=== PATIENT | male | born 1965 ===

== ENCOUNTER 2016-12-25 05:31 | Inpatient (IN) ==
[~2016-12-25 05:31] MED LIST: LORazepam 1 MG TABLET PO ONE
[2016-12-25] MEDS ORDERED: VANCOMYCIN INJ 1,000 MG in SODIUM CHLORIDE 0.9% 250 ML IV ONE (06:00)
[2016-12-25] MEDS ORDERED: LORazepam 1 MG TABLET PO ONE (06:00)
[2016-12-25] MEDS ORDERED: FAMOTIDINE 20 MG TABLET PO ONE (06:00)
[2016-12-25] MEDS ORDERED: SODIUM CHLORIDE 0.9% 100 ML IV ONE (06:04)
[2016-12-25] MEDS ORDERED: ceFAZolin 1,000 MG VIAL ONE (06:04)
[2016-12-25] MEDS ORDERED: VANCOMYCIN 1,000 MG VIAL ONE (06:04)
[2016-12-25] MEDS: LACTATED RINGERS 1,000 ML IV SCH ×2 (06:25→18:06)
[2016-12-25] MEDS ORDERED: TRANEXAMIC ACID 1,000 MG/10 ML VIAL IV ONE (06:43)
--- NOTE | 2016-12-25 07:04 | History and Physical Update ---
History and Physical Update - History and Physical H&P was reviewed, the patient examined and there: are no changes in the patients condition since last H&P was completed.
[2016-12-25] MEDS ORDERED: TEMAZEPAM 7.5 MG CAPSULE PO PRN (07:07)
[2016-12-25] MEDS ORDERED: HYDROmorphone 2 MG/1 ML VIAL IV PRN (07:07)
[2016-12-25] MEDS ORDERED: PROMETHAZINE 25 MG/1 ML VIAL IM PRN (07:07)
[2016-12-25] MEDS ORDERED: BISACODYL 10 MG SUPP RECTAL PRN (07:07)
[2016-12-25] MEDS ORDERED: LACTULOSE 20 GM/30 ML UDCUP PO PRN (07:07)
[2016-12-25] MEDS ORDERED: MAGNESIUM HYDROXIDE SUSP 30 ML UDCUP PO PRN (07:07)
[2016-12-25] MEDS ORDERED: ROPIVACAINE 0.5% 30 ML VIAL ONE (07:24)
[2016-12-25] MEDS ORDERED: KETAMINE 500 MG/10 ML VIAL ONE (09:02)
[2016-12-25] MEDS ORDERED: SODIUM CHLORIDE 0.9% 200 ML IV ONE (09:03)
[2016-12-25] MEDS ORDERED: MIDAZOLAM 2 MG/2 ML VIAL ONE (09:03)
[2016-12-25] MEDS ORDERED: LACTATED RINGERS 1,000 ML IV ONE (09:03)
[2016-12-25] MEDS ORDERED: fentaNYL 100 MCG/2 ML VIAL ONE (09:03)
[2016-12-25] MEDS ORDERED: PROPOFOL 200 MG/20 ML VIAL IV ONE (09:03)
[2016-12-25] MEDS ORDERED: ACETAMINOPHEN 1,000 MG/100 ML VIAL IV ONE (09:04)
--- NOTE | 2016-12-25 09:29 | XRay Report ---
History: Joint replacement Date: 12/25/2016 Study: Left knee 2 views Comparison exam: No previous The patient is immediately postop left knee replacement. The knee prosthesis is well conjugated. There is no radiographic evidence to suggest complication. Skin jasmyn and surgical drains overlie the soft tissues anteriorly. Impression: Satisfactory postoperative appearance of the left knee prosthesis PROCEDURE INTERPRETED AT [facility] DEPARTMENT OF RADIOLOGY Final Report Signed by: Dr. Zoe Phelps
[2016-12-25] MEDS ORDERED: HYDROmorphone PCA 30 MG/30 ML SYRINGE IV ONE (09:42)
[2016-12-25] MEDS: HYDROmorphone PCA 30 MG/30 ML SYRINGE IV SCH (09:48)
--- NOTE | 2016-12-25 10:03 | Anesthesia ---
Anesthesia Post OP - Post Ansesthetic Evaluation Patient seen in post op: Yes Resp: within normal limits CV: within normal limits Mental: within normal limits Temp: within normal limits Nugs-Gk-Vplhqhlyf: within normal limits Nausea and Vomiting: within normal limits Pain: within normal limits
[2016-12-25] MEDS: ceFAZolin 2,000 MG in PREMIX 1 EACH IV SCH ×2 (10:45→18:08)
[2016-12-25] MEDS: LEVOTHYROXINE 112 MCG TABLET PO SCH (11:00)
[2016-12-25] MEDS: TAMSULOSIN 0.4 MG CAPSULE PO SCH (11:01)
[2016-12-25] MEDS: SPIRONOLACTONE 25 MG TABLET PO SCH (11:02)
[2016-12-25] MEDS: DOCUSATE SODIUM 100 MG CAPSULE PO SCH ×2 (11:02→20:03)
[2016-12-25] MEDS: ASPIRIN EC 81 MG TABLET PO SCH (11:03)
[2016-12-25] MEDS: MELOXICAM 7.5 MG TABLET PO SCH (11:03)
[2016-12-25] MEDS: amLODIPine 5 MG TABLET PO SCH (11:14)
[2016-12-25] MEDS: ONDANSETRON 4 MG/2 ML VIAL IV PRN (11:14)
[2016-12-25] MEDS: CARVEDILOL 6.25 MG TABLET PO SCH ×2 (11:14→20:05)
--- NOTE | 2016-12-25 15:38 | Operative Note ---
DATE: 12/25/2016 PREOPERATIVE DIAGNOSIS: OSTEOARTHRITIS LEFT KNEE. POSTOPERATIVE DIAGNOSIS: OSTEOARTHRITIS LEFT KNEE. OPERATIVE PROCEDURE: Left total knee ([place]). SURGEON: Matti Woods Jr., MD ANESTHESIA: Spinal INDICATIONS: A 51-year-old male with severe osteoarthritis to his left knee. He h as maximized conservative treatment through the years including multiple injections, anti-inflammato ry medications, and even bracing. He presents today for elective left total knee. PROCEDURE: The patient taken to the operating room and under spinal anesthetic placed in the supin e position. The left lower extremity positioned, prepped and draped in the usual sterile manner. T he limb was elevated and exsanguinated and the tourniquet inflated to 300 mmHg. A previous incision over the anterior knee was re-incised. This was from a previous quad tendon repair. A median para patellar arthrotomy performed with the knee revealing severe and extensive tricompartmental degenera tive changes. Intramedullary alignment guides were used to make the appropriate cuts about the dist al femur proximal tibia. The femur sized to an 8 and the tibia to a 7. A 6 mm fixed bearing space selected and the PCL retained. The patella resurfaced with a 41 button. A lateral release was requ ired. After removal of the trial components all 3 components were cemented into place. After this hardene d, the knee was irrigated and closed in a standard fashion over two 1/8th-inch Hemovac drains using #1 Vicryl for the arthrotomy, 2-0 Vicryl for the subcutaneous layer, and jasmyn for skin. The tour niquet was deflated at wound closure at 51 minutes.
--- NOTE | 2016-12-25 16:20 | Pulmonology Progress Note ---
Pulmonary - PN: Subj Interval history: Patient is a 51 year came in today and had a left total knee replacement. He is a large amount of sleep apnea but did well with surgery. He says he is not having any trouble breathing. He is using his CPAP and does well. Overall he says he is feeling okay. Exam (Progress Note) - Constitutional Vitals: Period Temp Pulse Resp BP Sys/Munoz Pulse Ox Last 24 Hr 97.0 F-98.1 F 52-70 12-20 125-176/57-100 95-100 General appearance: no acute distress, over weight - Head Head exam: Present: normal inspection, normocephalic - Eye Eye exam: Present: EOMI. Absent: scleral icterus Pupils: Present: ROCHELLE - ENT ENT exam: Present: normal exam, other (He has a class IV Mallampati exam) - Neck Neck exam: Present: normal inspection. Absent: lymphadenopathy, thyromegaly - Respiratory Respiratory exam: Present: clear to auscultation bilaterally. Absent: wheezes - Cardiovascular Cardiovascular exam: Present: regular rate and rhythm. Absent: gallop, systolic murmur - GI/Abdominal GI/Abdominal exam: Present: normal bowel sounds, soft. Absent: organomegaly, tenderness - Extremities Exam Extremities exam: Present: other (Left leg is splinted). Absent: calf tenderness - Neurological Exam Neurological exam: Present: alert, oriented X3, CN II-XII intact - Psychiatric Psychiatric exam: Present: normal affect - Skin Skin exam: Present: warm Assessment and Plan (1) Osteoarthritis Status: Acute Assessment and plan: Patient has significant arthritis of his knees and comes in for knee replacement Current Visit: Yes (2) Status post total left knee replacement Status: Acute Assessment and plan: Patient did well with surgery today and is stable postop. Current Visit: Yes (3) Hypertension Status: Acute Assessment and plan: His blood pressure and heart rate are stable Current Visit: No (4) Sleep apnea Status: Acute Assessment and plan: He will continue to use his CPAP postop. Current Visit: No
--- NOTE | 2016-12-25 17:54 | Orthopedic Progress Note ---
Orthopedics - Subjective Interval history: comfortable, good pulse, discussed, up in am Exam - Constitutional Vitals: Period Temp Pulse Resp BP Sys/Munoz Pulse Ox Last 24 Hr 97.0 F-98.2 F 52-70 12-20 125-176/57-100 94-100
[2016-12-25] MEDS: FONDAPARINUX 2.5 MG/0.5 ML SYRINGE SUBCUT SCH (18:05)
[2016-12-26] MEDS: LACTATED RINGERS 1,000 ML IV SCH (03:46)
[2016-12-26 06:06] LABS: Basophils % 0.2 % (0.0-0.8); Eosinophils # 0.1 10*3/uL (0.0-0.87); Eosinophils % 0.9 % (0.00-10.9); Hematocrit 37.9 VOL% (42.0-52.0); Hemoglobin 12.9 GM/DL (14.0-18.0); Immature Granulocytes % 0.5 %; Immature Granulocytes Absolute 0.05 #; Lymphocytes % 9.4 % (21.2-54.2); Mean Corpuscular Hemoglobin 30 PG (27-34); Mean Corpuscular Volume 89.4 FL (87-102); Mean Platelet Volume 10.8 FL (9.6-12.0); Monocytes # 1.3 10*3/uL (0.11-0.8); Monocytes % 11.8 % (1.7-12.7); Neutrophils # 8.4 10*3/uL (1.4-7.4); Neutrophils % 77.2 % (38.7-73.9); Platelet Count 255 T/CUMM (130-400); Red Blood Count 4.24 MC/CUMM (3.8-5.5); Red Cell Distribution Width 12.1 % (9.3-17.3); White Blood Count 10.9 T/CUMM (4-12)
[2016-12-26 06:41] LABS: Calcium 8.1 MG/DL (8.5-10.1); Osmolality,Calculated 278.7 MOS/KG (273-304); Potassium 3.7 MMOL/L (3.5-5.1)
--- NOTE | 2016-12-26 07:24 | Orthopedic Progress Note ---
Orthopedics - Subjective Interval history: Hemoglobin over 12 drain removed nVI ready to start PT Exam - Constitutional Vitals: Period Temp Pulse Resp BP Sys/Munoz Pulse Ox Last 24 Hr 97.0 F-99.3 F 52-70 12-20 125-153/57-96 94-100 Results - Labs CBC & BMP: 12/26/16 05:17 12/26/16 05:17
[2016-12-26] MEDS: HYDROmorphone PCA 30 MG/30 ML SYRINGE IV SCH (08:00)
[2016-12-26] MEDS: LEVOTHYROXINE 112 MCG TABLET PO SCH (08:24)
[2016-12-26] MEDS: amLODIPine 5 MG TABLET PO SCH (08:24)
[2016-12-26] MEDS: TAMSULOSIN 0.4 MG CAPSULE PO SCH (08:24)
[2016-12-26] MEDS: ASPIRIN EC 81 MG TABLET PO SCH (08:25)
[2016-12-26] MEDS: SPIRONOLACTONE 25 MG TABLET PO SCH (08:25)
[2016-12-26] MEDS: DOCUSATE SODIUM 100 MG CAPSULE PO SCH ×2 (08:26→21:10)
[2016-12-26] MEDS: CARVEDILOL 6.25 MG TABLET PO SCH ×2 (08:26→21:10)
[2016-12-26] MEDS: MELOXICAM 7.5 MG TABLET PO SCH (08:26)
--- NOTE | 2016-12-26 09:08 | Pulmonology Progress Note ---
Pulmonary - PN: Subj Interval history: Patient is a 51 year came in today and had a left total knee replacement. He is a large man with sleep apnea but did well with surgery. He says he is very sore but had a fairly good night. He does use his CPAP at night. He is not having any shortness of breath or chest pain. He is going to start physical therapy today Exam (Progress Note) - Constitutional Vitals: Period Temp Pulse Resp BP Sys/Munoz Pulse Ox Last 24 Hr 97.0 F-99.3 F 54-70 12-20 125-153/62-96 94-100 Exam: General appearance: no acute distress, over weight, he is alert and fairly comfortable lying in bed. - Head Head exam: Present: normal inspection, normocephalic - Eye Eye exam: Present: EOMI. Absent: scleral icterus Pupils: Present: ROCHELLE - ENT ENT exam: Present: normal exam, other (He has a class IV Mallampati exam) - Neck Neck exam: Present: normal inspection. Absent: lymphadenopathy, thyromegaly - Respiratory Respiratory exam: Present: clear to auscultation bilaterally. He has good breath sounds bilaterally. Absent: wheezes - Cardiovascular Cardiovascular exam: Present: regular rate and rhythm. Absent: gallop, systolic murmur - GI/Abdominal GI/Abdominal exam: Present: normal bowel sounds, soft. Absent: organomegaly, tenderness - Extremities Exam Extremities exam: Present: other (Left leg is splinted). Absent: calf tenderness - Neurological Exam Neurological exam: Present: alert, oriented X3, CN II-XII intact - Psychiatric Psychiatric exam: Present: normal affect - Skin Skin exam: Present: warm Results - Labs CBC & BMP: 12/26/16 05:17 12/26/16 05:17 Assessment and Plan (1) Osteoarthritis Status: Acute Assessment and plan: Patient has significant arthritis of his knees and comes in for knee replacement. He is doing well postop. Current Visit: Yes (2) Status post total left knee replacement Status: Acute Assessment and plan: Patient did well with surgery today and is stable postop. He will start physical therapy today. His lab work looks okay. Current Visit: Yes (3) Hypertension Status: Acute Assessment and plan: His blood pressure and heart rate are stable. He is hemodynamically stable. Current Visit: No (4) Sleep apnea Status: Acute Assessment and plan: He will continue to use his CPAP postop. He does not feel like he is having any trouble breathing. Current Visit: No
--- NOTE | 2016-12-26 10:12 | Pathology Report from [facility] ---
ACCESSION # : [id number] PATIENT NAME : Enriqueta Morales ORDERING DR : ENRIQUETA RATLIFF JR, MD CLINICAL HX: LT knee osteoarthritis POST-OP DX: Same SPECIMEN INFO: LT knee bone & tissue GROSS DESCRIPTION: Received in formalin labeled "ENRIQUETA MORALES" are fragments of bone, cartilage and adipose tissue measuring collectively 15.6 x 18.6 cm. The articular surfaces are focally degenerative with osteophyte formation and cartilaginous lipping present. Paint Stock Clerk sections are submitted in one cassette following decalcification. DIAGNOSIS FOR ENRIQUETA MORALES: LEFT KNEE BONE AND TISSUE: Gross and microscopic findings consistent with osteoarthritis. SERVICE DATE: 12/25/2016 REPORT DATE: 12/26/2016 PATHOLOGIST: Ngozi New III, M.D. MTDD
[2016-12-26] MEDS: diphenhydrAMINE CAP 25 MG CAPSULE PO PRN ×2 (11:19→23:59)
[2016-12-26] MEDS: ONDANSETRON 4 MG/2 ML VIAL IV PRN (12:19)
[2016-12-26] MEDS: HydrOXYzine PAMOATE 25 MG CAPSULE PO PRN (16:23)
[2016-12-26] MEDS: FONDAPARINUX 2.5 MG/0.5 ML SYRINGE SUBCUT SCH (18:26)
[2016-12-27] MEDS: HydrOXYzine PAMOATE 25 MG CAPSULE PO PRN (02:27)
[2016-12-27 04:55] LABS: Basophils % 0.2 % (0.0-0.8); Eosinophils # 0.3 10*3/uL (0.0-0.87); Eosinophils % 2.7 % (0.00-10.9); Hematocrit 33.8 VOL% (42.0-52.0); Hemoglobin 11.7 GM/DL (14.0-18.0); Immature Granulocytes % 0.9 %; Immature Granulocytes Absolute 0.11 #; Lymphocytes # 1.1 10*3/uL (1.4-4.0); Lymphocytes % 9.1 % (21.2-54.2); Mean Corpuscular HGB Conc 34.6 GM/DL (32-36); Mean Corpuscular Hemoglobin 30 PG (27-34); Mean Corpuscular Volume 87.8 FL (87-102); Mean Platelet Volume 10.3 FL (9.6-12.0); Monocytes # 1.6 10*3/uL (0.11-0.8); Monocytes % 13.4 % (1.7-12.7); Neutrophils # 8.6 10*3/uL (1.4-7.4); Neutrophils % 73.7 % (38.7-73.9); Platelet Count 212 T/CUMM (130-400); Red Blood Count 3.85 MC/CUMM (3.8-5.5); White Blood Count 11.7 T/CUMM (4-12)
--- NOTE | 2016-12-27 07:08 | Orthopedic Progress Note ---
Orthopedics - Subjective Interval history: Comfortable tolerating PT well instructed likely home either Saturday afternoon or Saturday discussed. Exam - Constitutional Vitals: Period Temp Pulse Resp BP Sys/Munoz Pulse Ox Last 24 Hr 98.0 F-99.9 F 61-77 18-20 129-171/70-88 95-97 Results - Labs CBC & BMP: 12/27/16 04:43 12/26/16 05:17 Specialty Discharge - Follow Up or Referrals Follow up with: Matti Woods Jr., MD [Physician] -
--- NOTE | 2016-12-27 07:10 | Discharge Summary ---
Hospital Course - Hospital Course Hospital Course: Elective total knee left discharged home with home health Diagnosis - Discharge Diagnosis (1) Osteoarthritis of left knee Status: Acute Specialty Discharge - Follow Up or Referrals Follow up with: Matti Woods Jr., MD [Physician] - Discharge Plan - Discharge Data Disposition: Home Health Service Condition at Discharge: Stable Discharge Diet: advance to your usual diet Activity: ambulate only with your walker, as per physical therapy, increase activity as tolerated Hygiene: may shower, keep area(s) dry Weight Bearing at Discharge: weight bear as tolerated - Discharge Medications New HYDROcodone/ACETAMIN 7.5-325 [[place] 7.5-325] 2 tablet PO Q4H PRN #30 tablet PRN Reason: Moderate Pain unrelieved by 1 Continue Tamsulosin [Flomax] 0.4 mg PO DAILY Aspirin [Ecotrin] 81 mg PO DAILY amLODIPine [Norvasc] 10 mg PO DAILY Spironolactone 12.5 mg PO DAILY Meloxicam 7.5 mg PO DAILY Levothyroxine Tab [Synthroid Tab] 150 mcg PO DAILY@0700 Carvedilol 3.125 mg PO BID - Follow Up or Referral Follow Up: Matti Woods Jr., MD [Physician] - - Forms/Instructions Instructions: Total Knee Replacement (DC) Additional Discharge Instructions: Discharged home with home health continue home meds aspirin daily [place] for pain total knee protocol with CPM walker advancing with activity weightbearing as tolerated jasmyn to be removed and Steri-Strip January 08. Follow-up 4 weeks Exam - Constitutional Vitals: Period Temp Pulse Resp BP Sys/Munoz Pulse Ox Last 24 Hr 98.0 F-99.9 F 61-77 18-20 129-171/70-88 95-97 Discharge Results Labs on day of discharge: Labs from last 24 hours 12/27/16 04:43 WBC 11.7 RBC 3.85 Hgb 11.7 L Hct 33.8 L MCV 87.8 MCH 30 MCHC 34.6 RDW 12.0 Plt Count 212 MPV 10.3 Neut % (Auto) 73.7 Lymph % (Auto) 9.1 L [place] % (Auto) 13.4 H Eos % (Auto) 2.7 Baso % (Auto) 0.2 Neut # (Auto) 8.6 H Lymph # (Auto) 1.1 L [place] # (Auto) 1.6 H Eos # (Auto) 0.3 Baso # (Auto) 0.0 Immature Gran % 0.9 Nucleated RBC % 0.0 Immature Gran # 0.11 Nucleated RBCs # 0.00 DS: Provider Date of admission: 12/25/16 05:31 Primary care physician: Candido Dalal MD Attending physician on admission: Matti Woods Jr., MD Consults: 12/25/16 07:07 Consult to Case Mgmt/Social Srvs [CONS] Routine Reason for Case Mgmt/Social Srvs: Rehab Home Health Equipment Consult Comment: Bedside Commode & CPM deliver room 319; Pt 5ft 11in 302lbs; before D/C Consult to Occupational Therapy [CONS] Routine Reason for Occupational Therapy: Evaluate and Treat Consult Comment: ADL's Consult to Physical Therapy [CONS] Routine Reason for Physical Therapy: Evaluate and Treat Gait Training 12/25/16 07:09 Consult to Physician [CONS] Routine Comment: Consulting Provider: Esdras Latham Consulting Provider Notified: Yes When should Consulting Provider be notified: Now Person Notified: kate huang Date Notified: 12/25/16 Time Notified: 10:25 12/25/16 09:25 Consult to Pharmacy [CONS] Routine Reason for Pharmacy Consult: Adjust Meds Renal Funct 12/26/16 10:49 Consult to Physical Therapy [CONS] Routine Reason for Physical Therapy: Other Consult Comment: Ordering Standard Walker deliver to room before Pt D/C home. Discharging clinician: Matti Woods Jr., MD
[2016-12-27] MEDS: LACTATED RINGERS 1,000 ML IV SCH (07:43)
[2016-12-27] MEDS: ASPIRIN EC 81 MG TABLET PO SCH (08:47)
[2016-12-27] MEDS: SPIRONOLACTONE 25 MG TABLET PO SCH (08:47)
[2016-12-27] MEDS: TAMSULOSIN 0.4 MG CAPSULE PO SCH (08:47)
[2016-12-27] MEDS: amLODIPine 5 MG TABLET PO SCH (08:47)
[2016-12-27] MEDS: LEVOTHYROXINE 112 MCG TABLET PO SCH (08:47)
[2016-12-27] MEDS: CARVEDILOL 6.25 MG TABLET PO SCH ×2 (08:47→21:39)
[2016-12-27] MEDS: DOCUSATE SODIUM 100 MG CAPSULE PO SCH ×2 (08:47→21:40)
[2016-12-27] MEDS: MELOXICAM 7.5 MG TABLET PO SCH (08:47)
--- NOTE | 2016-12-27 10:36 | Pulmonology Progress Note ---
Pulmonary - PN: Subj Interval history: Patient is a 51 year came in today and had a left total knee replacement. He is a large man with sleep apnea but did well with surgery. He started physical therapy yesterday and is doing fairly well. He feels like his leg soreness is getting better. He is not having any trouble with his breathing. He has not had a bowel movement yet Exam (Progress Note) - Constitutional Vitals: Period Temp Pulse Resp BP Sys/Munoz Pulse Ox Last 24 Hr 98.0 F-99.9 F 64-77 18-20 132-171/74-94 95-97 Exam: General appearance: no acute distress, over weight, he is alert and fairly comfortable lying in bed. He is moving around a little better - Head Head exam: Present: normal inspection, normocephalic - Eye Eye exam: Present: EOMI. Absent: scleral icterus Pupils: Present: ROCHELLE - ENT ENT exam: Present: normal exam, other (He has a class IV Mallampati exam) - Neck Neck exam: Present: normal inspection. Absent: lymphadenopathy, thyromegaly - Respiratory Respiratory exam: Present: clear to auscultation bilaterally. He has good breath sounds bilaterally. Absent: wheezes - Cardiovascular Cardiovascular exam: Present: regular rate and rhythm. Absent: gallop, systolic murmur - GI/Abdominal GI/Abdominal exam: Present: normal bowel sounds, soft. Absent: organomegaly, tenderness - Extremities Exam Extremities exam: Present: other (Left leg is splinted). Absent: calf tenderness - Neurological Exam Neurological exam: Present: alert, oriented X3, CN II-XII intact - Psychiatric Psychiatric exam: Present: normal affect - Skin Skin exam: Present: warm Results - Labs CBC & BMP: 12/27/16 04:43 12/26/16 05:17 Assessment and Plan (1) Osteoarthritis Status: Acute Assessment and plan: Patient has significant arthritis of his knees and comes in for knee replacement. He is doing well postop. He will continue with physical therapy. Current Visit: Yes (2) Status post total left knee replacement Status: Acute Assessment and plan: Patient did well with surgery and will continue with physical therapy. He says his leg is feeling better today. Current Visit: Yes (3) Hypertension Status: Acute Assessment and plan: His blood pressure and heart rate are stable. He is hemodynamically stable. Current Visit: No (4) Sleep apnea Status: Acute Assessment and plan: He will continue to use his CPAP postop. He does not feel like he is having any trouble breathing. Overall he has been quite stable. Current Visit: No Specialty Discharge - Follow Up or Referrals Follow up with: Matti Woods Jr., MD [Physician] - 01/24/17 9:00 am
[2016-12-27] MEDS: FONDAPARINUX 2.5 MG/0.5 ML SYRINGE SUBCUT SCH (17:32)
[2016-12-28] MEDS: LEVOTHYROXINE 112 MCG TABLET PO SCH (09:30)
[2016-12-28] MEDS: amLODIPine 5 MG TABLET PO SCH (09:30)
[2016-12-28] MEDS: ASPIRIN EC 81 MG TABLET PO SCH (09:31)
[2016-12-28] MEDS: SPIRONOLACTONE 25 MG TABLET PO SCH (09:31)
[2016-12-28] MEDS: DOCUSATE SODIUM 100 MG CAPSULE PO SCH (09:31)
[2016-12-28] MEDS: MELOXICAM 7.5 MG TABLET PO SCH (09:31)
[2016-12-28] MEDS: TAMSULOSIN 0.4 MG CAPSULE PO SCH (09:31)
[2016-12-28] MEDS: CARVEDILOL 6.25 MG TABLET PO SCH (09:31)
--- NOTE | 2016-12-28 09:47 | Orthopedic Progress Note ---
Orthopedics - Subjective Interval history: comfortable. walking in [place]. [place] ok. dressing dry. mobilize with therapy. discharge post therapy. Exam - Constitutional Vitals: Period Temp Pulse Resp BP Sys/Munoz Pulse Ox Last 24 Hr 98.5 F-99.6 F 70-78 16-19 126-154/61-89 94-97 Results - Labs CBC & BMP: 12/27/16 04:43 12/26/16 05:17 Specialty Discharge - Follow Up or Referrals Follow up with: Matti Woods Jr., MD [Physician] - 01/24/17 9:00 am
--- NOTE | 2016-12-28 10:20 | Pulmonology Progress Note ---
Pulmonary - PN: Subj Interval history: Patient is a 51 year came in and had a left total knee replacement. He is a large man with sleep apnea but did well with surgery. He started physical therapy yesterday and is doing fairly well. He feels like his leg soreness is getting better. He is not having any trouble with his breathing. He says his leg is feeling better and is doing more activity. He does want to go home today. Exam (Progress Note) - Constitutional Vitals: Period Temp Pulse Resp BP Sys/Munoz Pulse Ox Last 24 Hr 98.5 F-99.6 F 70-78 16-19 126-154/61-89 94-97 Exam: General appearance: no acute distress, over weight, he is alert and fairly comfortable lying in bed. He is moving around a little better - Head Head exam: Present: normal inspection, normocephalic - Eye Eye exam: Present: EOMI. Absent: scleral icterus Pupils: Present: ROCHELLE - ENT ENT exam: Present: normal exam, other (He has a class IV Mallampati exam) - Neck Neck exam: Present: normal inspection. Absent: lymphadenopathy, thyromegaly - Respiratory Respiratory exam: Present: clear to auscultation bilaterally. He has good breath sounds bilaterally. Absent: wheezes - Cardiovascular Cardiovascular exam: Present: regular rate and rhythm. Absent: gallop, systolic murmur - GI/Abdominal GI/Abdominal exam: Present: normal bowel sounds, soft. Absent: organomegaly, tenderness - Extremities Exam Extremities exam: Present: Left knee swelling is better and is moving his leg better. - Neurological Exam Neurological exam: Present: alert, oriented X3, CN II-XII intact - Psychiatric Psychiatric exam: Present: normal affect - Skin Skin exam: Present: warm Results - Labs CBC & BMP: 12/27/16 04:43 12/26/16 05:17 Assessment and Plan (1) Osteoarthritis Status: Acute Assessment and plan: Patient has significant arthritis of his knees and comes in for knee replacement. He is doing well postop. He wants to go home and do physical therapy as an outpatient. Current Visit: Yes (2) Status post total left knee replacement Status: Acute Assessment and plan: Patient did well with surgery and will continue with physical therapy. He says his leg is feeling better today. Current Visit: Yes (3) Hypertension Status: Acute Assessment and plan: His blood pressure and heart rate are stable. He is hemodynamically stable. Current Visit: No (4) Sleep apnea Status: Acute Assessment and plan: He will continue to use his CPAP postop. He does not feel like he is having any trouble breathing. He will continue with his CPAP at night at home. He needs to continue with vigorous activity Current Visit: No Specialty Discharge - Follow Up or Referrals Follow up with: Matti Woods Jr., MD [Physician] - 01/24/17 9:00 am
[2016-12-28 15:45] VITALS: BP 144/70
== END 2016-12-28 15:45 | disposition home health service (06) | DRG 470 ==
LOC: N.OR 05:31 → N.SDSINP 05:31 → N.3E 07:07 → EDSTATUS 07:30 → N.3E 09:12 → EDSTATUS 09:15
PROVIDERS: ADMIT Orthopaedic Surgery; ATTEND Orthopaedic Surgery